=== PATIENT | male | born 1970 | race Caucasian/White ===

== ENCOUNTER 2021-07-21 11:49 | Emergency (ER) | payer MEDICARE, MEDICAID ==
[~2021-07-21] VITALS: Ht 187.9 cm; Wt 113.4 kg
[~2021-07-21 11:49] MED LIST: ACHD5005 PO; ALPR1T PO; AZIT-21 PO; BACL10TA PO; CEPH500C PO; CLIN-62 PO; CYCL10TA45 PO; CYCL10TA9 PO; DCS100C PO; DOXY100C2 PO; GFCD10B PO; HYDR-1231 PO; HYDR-3454 PO; HYDR28CR10 TP; HYDR480S10 PO; KETO-22 PO; KETO75CA PO; METH4TAB PO; NAPR-243 PO; NF-ESOM40C; OMEP20CA12 PO; PAXIL; PRD20T PO; PRM25T PO; TRAM50TA2 PO; TRM50T PO
[2021-07-21 12:00] VITALS: BP 155/79
--- NOTE | 2021-07-21 12:06 | ED Upper Extremity ---
General Stated Complaint: R ELBOW/WRIST PAIN Source: patient Exam Limitations: no limitations History of Present Illness Date Seen by Provider: Jul 21, 2021 Time Seen by Provider: 12:03 Initial Comments To ER with reports that he fell this morning striking the posterior right elbow on the ground. Subsequently has pain. He has worsening pain with flexion of the elbow. He briefly had some pain that shot down to the hand including tingling of the hand however that has resolved and he no longer has any numbness or tingling of the fingers. No other injury. Onset: this morning Severity: moderate Pain/Injury Location: right elbow, right forearm Method of Injury: fell Modifying Factors: Worse With Movement Allergies and Home Medications Allergies Coded Allergies: penicillin G (Unverified Allergy, Mild, 09/01/08) codeine (Verified Adverse Reaction, Intermediate, NAUSEA/ VOMITING, 08/26/08) Patient Home Medication List Home Medication List Reviewed: Yes Cyclobenzaprine Hcl (Flexeril Tablet) 10 Mg Tablet, 10 MG PO TID PRN for SPASMS Prescribed by: DARION GRAHAM on 06/10/14 175 Docusate Sodium (Colace) 100 Mg Cap, 100 MG PO BID Prescribed by: PARI NIELSEN on 06/10/14 1412 Hydrocodone Bit/Acetaminophen (Vicodin 5-300 Mg Tablet) 1 Each Tablet, 1 EACH PO Q4H PRN for PAIN Prescribed by: PARI NIELSEN on 06/10/14 1412 Omeprazole (Omeprazole) 20 Mg Capsule.dr, 20 MG PO DAILY, (Reported) Entered as Reported by: SUSANA BANERJEE on 11/19/131919 Review of Systems Constitutional: see HPI EENTM: see HPI Respiratory: no symptoms reported Cardiovascular: no symptoms reported Genitourinary: no symptoms reported Musculoskeletal: see HPI Skin: no symptoms reported Psychiatric/Neurological: No Symptoms Reported Past Bbmbvuz-[id number]-Jlimlf Hx Past Medical History Reproductive Disorders: No Sexually Transmitted Disease: No HIV/AIDS: No Gastroesophageal Reflux, Hiatal Hernia Arthritis, Chronic Back Pain Depression Adverse Reaction/Blood Tranf: No Family Medical History No Pertinent Family Hx Physical Exam Vital Signs Vital Signs - First Documented 07/21/21 12:00 Temp 36.7 Pulse 74 Resp 16 B/P (MAP) 155/79 (104) Pulse Ox 98 O2 Delivery Room Air Capillary Refill : Height, Weight, BMI Height: 6'2.00" Weight: 249lbs. oz. 112.568278pi; BMI Method:Stated General Appearance: WD/WN, no apparent distress HEENT: PERRL/EOMI, normal ENT inspection Respiratory: no respiratory distress, no accessory muscle use Shoulder: normal inspection, non-tender Elbow/Forearm: normal inspection, Right, pain (No erythema no ecchymosis no edema no broken skin) Hand: normal inspection, non-tender Neurologic/Tendon: normal sensation, normal motor functions, normal tendon functions Neurologic/Psychiatric: alert, normal mood/affect, oriented x 3 Skin: normal color, warm/dry Progress/Results/Core Measures Results/Orders My Orders Orders - DEANNA DUMONT APRN Forearm, Right, 2 Views (07/21/21 12:02) Elbow, Right, 3 Views (07/21/21 12:02) Vital Signs/I&O 07/21/21 12:00 Temp 36.7 Pulse 74 Resp 16 B/P (MAP) 155/79 (104) Pulse Ox 98 O2 Delivery Room Air Departure Impression Primary Impression: Elbow contusion Qualified Codes: S50.01XA - Contusion of right elbow, initial encounter Disposition: HOME, SELF-CARE Condition: Stable Departure-Patient Inst. Decision time for Depature: 12:05 Referrals: NO,LOCAL PHYSICIAN (PCP/Family) Primary Care Physician Patient Instructions: Contusion (DC) Add. Discharge Instructions: 1. Tylenol and ibuprofen for pain control. Return to ER for any concerns. Follow-up with your doctor next week. Work/School Note: Work Release Form Date Seen in the Emergency Department: Jul 21, 2021 Return to Work: Jul 22, 2021 DEANNA DUMONT APRN Jul 21, 2021 12:06
--- NOTE | 2021-07-21 12:27 | Diagnostic Imaging Report ---
INDICATION: Fall with right elbow pain. AP, oblique, and lateral views of the right elbow were obtained. FINDINGS: No fracture or acute bony abnormality seen. Joint spaces are unremarkable. IMPRESSION: Negative right elbow. Dictated by: Dictated on workstation # [id number]
--- NOTE | 2021-07-21 12:27 | Diagnostic Imaging Report ---
INDICATION: Fall with right forearm pain. TECHNIQUE: AP and lateral views of the right forearm are obtained. FINDINGS: No acute fracture is seen. There is irregularity of the distal radius which is likely chronic with narrowing of the radiocarpal joint. IMPRESSION: No acute-appearing abnormality. 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 Dictated by: Dictated on workstation # [id number]
== END 2021-07-21 12:43 | disposition home or self-care (01) ==
LOC: EDUNIT# 11:49 → ER 11:52
DX: S50.01XA Contusion of right elbow, initial encounter (principal); K21.9 Gastro-esophageal reflux disease without esophagitis; G89.29 Other chronic pain; M54.9 Dorsalgia, unspecified; Z79.891 Long term (current) use of opiate analgesic; W22.8XXA Striking against or struck by other objects, initial encounter
CPT/HCPCS: 73080; 73090